=== PATIENT | female | born 1975 | race Caucasian/White ===

== ENCOUNTER → 2019-11-12 | Outpatient (CLI) | payer OTHER ==
--- NOTE | 2019-11-15 11:11 | MM ---
Reason for exam: screening (asymptomatic). Last mammogram was performed 5 years and 8 months ago. History: Family history of breast cancer in paternal grandmother at age 60 and breast cancer in 2 paternal aunts at age 60. Benign US right guided VAD of the right breast, January 11, 2011. Took hormonal contraceptives for 6 years. Physical Findings: A clinical breast exam by your physician is recommended on an annual basis and results should be correlated with mammographic findings. MG Screening Mammo w CAD Bilateral CC and MLO view(s) were taken. Prior study comparison: March 07, 2014, bilateral MG diagnostic mammo w CAD [facility]. February 19, 2013, CAD bilateral diagnostic mammogram. The breast tissue is heterogeneously dense. This may lower the sensitivity of mammography. There are benign appearing round calcifications bilaterally. Previous mammotome biopsy in the right breast. There is no discrete abnormality. ASSESSMENT: Benign, BI-RAD 2 RECOMMENDATION: Routine screening mammogram of both breasts in 1 year.
== END | disposition home or self-care (01) ==
LOC: RADMAMWWP 16:28
PROVIDERS: ATTEND Obstetrics & Gynecology
DX: Z12.31 Encounter for screening mammogram for malignant neoplasm of breast (principal)
CPT/HCPCS: 77067

== ENCOUNTER 2020-11-26 23:04 | Emergency (ER) | payer OTHER ==
[2020-11-26 23:13] VITALS: BP 155/97; PULSE 99; RESP 20; TEMP 98.7
[2020-11-26] MEDS ORDERED: MORPHINE SULFATE 2 MG/ML SYRINGE IM STA (23:24)
--- NOTE | 2020-11-26 23:37 | ED ---
Lower Extremity Injury HPI - General Chief Complaint: Extremity Injury, Lower Stated Complaint: LT ankle injury Time Seen by Provider: 11/26/20 23:14 Source: patient Mode of arrival: ambulatory Limitations: no limitations - History of Present Illness Initial Comments: This patient's 45-year-old woman who presents to be a value for left lower leg/ankle injury. The patient states that she was attempting to step up and is not sure if hyper- flexed or internally rotated her left ankle. She has pain to the lateral aspect of the lower portion of the leg extending down toward the ankle. There is no foot pain. Patient states she was only barely able to support any weight on her left leg while coming in here. She denies previous injury or surgery to that extremity. There is no weakness or numbness in the foot. MD Complaint: ankle injury Onset/Timin -: hour(s) Injury: Ankle: Left Type of Injury: inversion, hyperflexion Place: street/outdoors Severity: severe Improves With: rest Worsens With: weight bearing Context: fall Associated Symptoms: snap/pop sensation Treatments Prior to Arrival: splint - Related Data Previous Rx's Medication Instructions Recorded HYDROcodone/APAP 5-325MG [Heav[place] 1 tab PO Q4HR PRN 3 Days #18 tab 11/27/20 5-325] Ibuprofen [Motrin] 600 mg PO Q8HR PRN #20 tab 11/27/20 Allergies Allergy/AdvReac Type Severity Reaction Status Date / Time Penicillins Allergy Unknown Verified 11/26/20 23:13 Childhood Review of Systems ROS Statement: Those systems with pertinent positive or pertinent negative responses have been documented in the HPI. ROS Other: All systems not noted in ROS Statement are negative. Constitutional: Denies: weakness Respiratory: Denies: cough, dyspnea Cardiovascular: Denies: chest pain, palpitations Musculoskeletal: Reports: as per HPI, joint swelling, arthralgia Skin: Denies: lesions Neurological: Denies: weakness, numbness, paresthesias Past Medical History Past Medical History: No Reported History History of Any Multi-Drug Resistant Organisms: None Reported Past Surgical History: Section, Orthopedic Surgery, Tubal Ligation Past Psychological History: No Psychological Hx Reported Smoking Status: Current every day smoker Past Alcohol Use History: Occasional Past Drug Use History: None Reported General Exam Limitations: no limitations General appearance: alert, in no apparent distress Head exam: Present: atraumatic, normocephalic Cardiovascular Exam: Present: other Extremities exam: Present: normal inspection, tenderness, normal capillary refill. Absent: full ROM, pedal edema, calf tenderness Neurological exam: Present: alert. Absent: motor sensory deficit Skin exam: Present: warm, dry, intact, normal color. Absent: rash Course Vital Signs 11/26/20 23:11 Temperature 98.7 F Pulse Rate 99 Respiratory 20 Rate Blood Pressure 155/97 O2 Sat by Pulse 100 Oximetry Disposition Clinical Impression: Fracture of ankle Disposition: HOME SELF-CARE Condition: Good Instructions (If sedation given, give patient instructions): Ankle Fracture (DC) Prescriptions: Ibuprofen [Motrin] 600 mg PO Q8HR PRN #20 tab PRN Reason: Pain HYDROcodone/APAP 5-325MG [[place] 5-325] 1 tab PO Q4HR PRN 3 Days #18 tab PRN Reason: Pain Is patient prescribed a controlled substance at d/c from ED?: Yes When asked, does pt state using other controlled substances?: No If prescribed controlled substance>3 days was MAPS reviewed?: Prescribed <3 Days If opioid is for acute pain is fill amount 7 days or less?: Yes If Rx opioid, was Start Talking consent form obtained?: Yes Referrals: Jovan Flores DO [Primary Care Provider] - 1-2 days Johnny Adhikari MD [STAFF PHYSICIAN] - 1-2 days
--- NOTE | 2020-11-26 23:50 | XR ---
EXAMINATION TYPE: XR tibia fibula LT DATE OF EXAM: 11/26/2020 COMPARISON: NONE HISTORY: Fall. Pain. TECHNIQUE: 2 views FINDINGS: There is a posterior dislocation of the talus. There is apparent large posterior malleolus chip fracture. There is probably nondisplaced oblique fracture distal shaft of the fibula. IMPRESSION: Posterior dislocation of the ankle joint with fracture.
[2020-11-27] MEDS ORDERED: HYDROmorphone 0.5 MG/0.5 ML SYRINGE IM STA (00:04)
--- NOTE | 2020-11-27 00:36 | XR ---
EXAM: XR Left Ankle, 2 Views CLINICAL HISTORY: ITS.REASON XR Reason: post-reduction TECHNIQUE: Frontal and lateral views of the left ankle. COMPARISON: 11/26/20. FINDINGS: Status post interval reduction of previously seen ankle dislocation. Widening of the medial clear space. Distal tibial and fibular fractures again noted. IMPRESSION: Status post interval reduction of previously seen ankle dislocation.
== END 2020-11-27 01:00 | disposition home or self-care (01) ==
LOC: EC 23:04
DX: S82.892A Other fracture of left lower leg, initial encounter for closed fracture (principal); F17.200 Nicotine dependence, unspecified, uncomplicated; Z88.0 Allergy status to penicillin; Z98.51 Tubal ligation status; X50.1XXA Overexertion from prolonged static or awkward postures, initial encounter
CPT/HCPCS: 73590; 73600; 99283; 96372 ×2; J2270; J1170

== ENCOUNTER 2020-12-01 08:31 | Day surgery (SDC) | payer OTHER ==
[2020-11-29 16:02] VITALS: BMI 28.1
--- NOTE | 2020-11-30 09:32 | HP ---
HISTORY AND PHYSICAL CHIEF COMPLAINT: Left ankle pain. 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 She was going up some concrete steps and twisted her ankle. Initially, she was seen in the emergency room and had her ankle fracture dislocation reduced and placed in a splint. She denies previous problems. She has been unable to bear weight since the injury. PAST MEDICAL HISTORY: Negative. CURRENT MEDICATIONS: Ibuprofen and hydrocodone. ALLERGIES: She notes allergies to PENICILLIN. FAMILY HISTORY: Negative. SOCIAL HISTORY: Significant for tobacco use. REVIEW OF SYSTEMS: Sixteen-point review of systems otherwise is reviewed and is noncontributory. PHYSICAL EXAMINATION: On examination, the patient is approximately 5 feet 5 inches, 172 pounds, of mesomorphic habitus. HEENT exam is nonfocal. Neck is supple. She is nontender about the left knee and proximal fibula. On examination of the left ankle, she has moderate lateral swelling. Skin is intact. She is tender over the distal fibula. She is also tender over the distal syndesmosis. She has moderate medial swelling. She is nontender about the deltoid. She has mild tenderness about the posterior medial malleolus. Her distal neurovascular exam appears intact in the left lower extremity. She is nontender about the mid and forefoot. X-rays of the left ankle from 11/26/2020 shows a lateral malleolar fracture with displacement. There is increased medial clear space. A small posterior malleolar fracture is noted. IMPRESSION: Left lateral malleolar ankle fracture-displaced with possible syndesmotic disruption. RECOMMENDATIONS: I talked to the patient at length regarding her condition and treatment options. At this point, she opts to proceed with surgery. We will plan to proceed with open reduction and internal fixation of the lateral malleolus with possible syndesmotic fixation. Potentially we will keep the patient for a 23-hour hold postoperatively. Risks and benefits were discussed at length in layman's terms. MMODL / IJN: [id number] /
[~2020-12-01 08:31] MED LIST: DEXAMETHASONE SOD PHOSPHATE 4 MG/ML 1 ML VIAL IV ONE; HYDROmorphone 0.5 MG/0.5 ML SYRINGE IVP PRN; LACTATED RINGERS 1,000 ML IV SCH; LIDOCAINE 1% (10MG/ML) FOR IV START INTRADERMA PRN; MIDAZOLAM 2 MG/2 ML VIAL IV PRN; ONDANSETRON 4 MG/2 ML VIAL IVP ONE
[2020-12-01] MEDS ORDERED: MIDAZOLAM 2 MG/2 ML VIAL IV ONE (09:43)
[2020-12-01] MEDS ORDERED: SCOPOLAMINE 1.5MG/72HR PATCH TRANSDERM ONE (09:55)
[2020-12-01] MEDS ORDERED: ROPIVACAINE 5 MG/ML 30 ML VIAL ONE (10:00)
[2020-12-01] MEDS ORDERED: LIDOCAINE 1% INJ 10MG/ML (20 ML MDV) ONE (10:00)
[2020-12-01] MEDS ORDERED: LACTATED RINGERS 1,000 ML IV ONE (10:00)
[2020-12-01] MEDS ORDERED: HYDROmorphone (PF) 1 MG/ML ONE (10:00)
[2020-12-01] MEDS ORDERED: DEXAMETHASONE SOD PHOSPHATE 4 MG/ML 1 ML VIAL ONE (10:00)
[2020-12-01] MEDS ORDERED: ROCURONIUM 10 MG/ML (5 ML VIAL) IV ONE (10:00)
[2020-12-01] MEDS ORDERED: NEOSTIGMINE 1 MG/ML 10 ML VIAL ONE (10:00)
[2020-12-01] MEDS ORDERED: GLYCOPYRROLATE 0.2 MG/ML 2 ML VIAL ONE (10:00)
[2020-12-01] MEDS ORDERED: SUCCINYLCHOLINE CHLORIDE 100 MG/5 ML SYR IV ONE (10:00)
[2020-12-01] MEDS ORDERED: PROPOFOL 10 MG/ML 20 ML VIAL IV ONE (10:00)
[2020-12-01] MEDS ORDERED: fentaNYL (PF) 50 MCG/ML 2 ML AMP ONE (10:00)
--- NOTE | 2020-12-01 11:32 | FL ---
Fluoroscopy INDICATION: Pain FINDINGS: Fluoroscopy time: 1 minute 6 seconds. Images obtained: 3. IMPRESSIONS: 1. Documentation of fluoroscopy.
--- NOTE | 2020-12-01 11:39 | P.OP ---
Date of Procedure: 12/01/20 Preoperative Diagnosis: Displaced left lateral malleolar ankle fracture with syndesmotic disruption Postoperative Diagnosis: Same Procedure(s) Performed: Open reduction and internal fixation left lateral malleolar ankle fracture with syndesmotic fixation Implants: Arthrex tight rope syndesmotic fixation system, lateral malleolar plate Anesthesia: darryl CUMMINGS Surgeon: Johnny Adhiakri Black Powder Glazing Operator #1: Minh Parekh Estimated Blood Loss (ml): 5 Pathology: none sent Condition: stable Disposition: PACU Indications for Procedure: The patient's 45-year-old female who presents with left ankle pain after a recent fall. Upon evaluation she was noted to have a displaced lateral malleolar fracture with probable syndesmotic disruption. A discussion of the risks and benefits of operative intervention was made with patient. She opted to proceed. Operative risks to include infection, neurovascular injury, development of blood clots, development nonunion/malunion, possible need for subsequent procedures was discussed. She opted to proceed. Informed consent was obtained. Operative Findings: As below Description of Procedure: The patient was brought to the operating room, and after induction of general anesthesia the left lower extremity was prepped and draped in a normal fashion. The tourniquet was inflated to 270 mmHg. An 8 cm incision was then made along the posterior lateral border of the distal fibula. Skin was incised sharply. Subcutaneous tissues were divided bluntly. Electrocautery was used for hemostasis. The periosteum overlying the distal fibula was elevated exposing the fracture site. This is cleaned of clot and debris. This was then provisionally reduced with a reduction clamp. A lag screw was placed anterior to posterior. This was a 3.5 mm cortical screws the appropriate length. Good purchase was obtained. A 7-hole lateral distal fibular plate was then attached proximally with 3.5 mm cortical screws the appropriate length. 2.0 mm cancellus screws were placed distally in the plate. This was done with the aid of fluoroscopy. At this point I checked syndesmotic stability. I felt it was unstable with significant increased medial clear space. I elected to proceed with fixation at that point. The appropriate drill bit was utilized through the plate proximally 2 cm above the level of the joint surface. This was angled an teriorly in the appropriate vector. The tight rope was then inserted and activated medially. With the ankle in maximum dorsiflexion, this was then tightened and tied over the button. The tibial clear space was restored to 2-3 mm. Final fluoroscopic views to include AP, mortise, and lateral view showed adequate reduction of the ankle mortise along with mandaen of fibular length. The posterior malleolar fracture was approximately 15% of the articular surface and appeared reasonably reduced. The wound was irrigated normal saline. The subcutaneous tissues were reapproximated interrupted 2-0 Vicryl sutures. The skin was reapproximated with 3-0 subcuticular Prolene suture. Steri-Strips were applied. A sterile dressing was applied in addition to a bulky splint. The tourniquet was deflated with approximately 1 hour total tourniquet time. Blood loss was estimated 5 mL. No complications were incurred. Sponge and needle counts were correct at the end the case. Barak BAHENA assisted during the major components the case to include patient positioning, exposure, fracture reduction, implant placement, and closure.
[2020-12-01 11:44] VITALS: TEMP 96.8
[2020-12-01 11:51] VITALS: RESP 16
[2020-12-01] MEDS ORDERED: HYDROcodone/APAP 7.5-325MG 1 EACH TAB ONE (12:41)
[2020-12-01] MEDS ORDERED: HYDROcodone/APAP 7.5-325MG 1 EACH TAB PO ONE (12:44)
[2020-12-01 13:45] VITALS: BP 136/62; PULSE 91
--- NOTE | 2020-12-03 16:26 | P.ANPRN ---
Procedure Note - Anesthesia - Nerve Block Performed Left Popliteal Single Time Out Performed: Yes Date of Procedure: 12/01/20 Procedure Start Time: 09:42 Procedure Stop Time: 09:49 Location of Patient: PreOp Indication: Acute Post-Operative Pain, Requested by Surgeon Sedation Type: Sedate with meaningful contact maintained Preparation: Sterile Prep Position: Supine Needle Types: Pajunk Needle Gauge: 21 Ultrasound used to visualize needle placement: Yes Ultrasound used to observe medication spread: Yes Blood Aspirated: No Pain Paresthesia on Injection Noted: No Resistance on Injection: Normal Image Stored and Saved: Yes Events: Uneventful and Well Tolerated (ropi .5% 20cc plus dexamethasone 4mg)
== END 2020-12-01 14:16 | disposition home or self-care (01) ==
LOC: OR 08:31
PROVIDERS: ATTEND Orthopaedic Surgery
DX: S82.62XA Displaced fracture of lateral malleolus of left fibula, initial encounter for closed fracture (principal); S93.432A Sprain of tibiofibular ligament of left ankle, initial encounter; F17.210 Nicotine dependence, cigarettes, uncomplicated; Z79.1 Long term (current) use of non-steroidal anti-inflammatories (NSAID); Z79.891 Long term (current) use of opiate analgesic; Z88.0 Allergy status to penicillin; Z98.890 Other specified postprocedural states; W10.9XXA Fall (on) (from) unspecified stairs and steps, initial encounter; X50.1XXA Overexertion from prolonged static or awkward postures, initial encounter
CPT/HCPCS: 81025; 64445; 76942; 73600; 27792; C1713; J2250; J1100; J2710; J0690; J2405; J2001; J3010; J1170; J2795; J0330; J2704

== ENCOUNTER → 2025-03-04 | Outpatient (CLI) | payer OTHER ==
--- NOTE | 2025-03-04 14:14 | MM ---
Reason for Exam: Screening (asymptomatic). Last mammogram was performed 2 year(s) and 9 month(s) ago. Patient History: Menarche at age 14. First Full-Term at age 30. Patient used Hormonal Contraceptives for 6 years. 01/11/2011, Benign Core Biopsy on the right side. Currently . Paternal grandmother had breast cancer, age 60. Paternal aunt had breast cancer, age 60. Paternal aunt had breast cancer, age 60. Last menstrual period: 12/09/2024 Risk Values: Steff 5 year model risk: 1.3%. NCI Lifetime model risk: 12.1%. Prior Study Comparison: 03/07/2014 Bilateral Diagnostic Mammogram, [facility]. 11/12/2019 Bilateral Screening Mammogram, [facility]. 06/07/2022 Bilateral MG screening mammo w CAD, [facility]. Tissue Density: There are scattered areas of fibroglandular density. Findings: Analyzed By CAD. Mammotome biopsy clip in the right breast anteriorly is redemonstrated. Stable 3 mm well-circumscribed medial aspect left breast. Benign-appearing subcentimeter bilateral axillary lymph nodes are redemonstrated. There is no suspicious new group of microcalcifications or new suspicious mass in either breast. Overall Assessment: Benign, BI-RAD 2 Management: Screening Mammogram of both breasts in 1 year. . Patient should continue monthly self-breast exams. A clinical breast exam by your physician is recommended on an annual basis. This exam should not preclude additional follow-up of suspicious palpable abnormalities. Note on Steff scores and lifetime risk: 1. A Steff score greater than 3% is considered moderate risk. If this is the case, consider specialist referral to assess eligibility for a risk reducing agent. 2. If overall lifetime risk for the development of breast cancer is 20% or higher, the patient may qualify for future screening with alternating mammogram and breast MRI. [facility], , 03/04/2025 2:08 PM. Electronically signed and approved by: Theron Rosado M.D.
== END | disposition home or self-care (01) ==
LOC: RADMAMWWP 13:26
PROVIDERS: ATTEND Family Medicine
DX: Z12.31 Encounter for screening mammogram for malignant neoplasm of breast (principal); R92.323 Mammographic fibroglandular density, bilateral breasts; Z80.3 Family history of malignant neoplasm of breast; Z92.0 Personal history of contraception
CPT/HCPCS: 77067